=== PATIENT | male | born 1965 | race Two or more races ===

== ENCOUNTER 2021-09-17 06:05 | Day surgery (SDC) | payer OTHER ==
[~2021-09-17 06:05] MED LIST: COZAAR100 MG PO; XARELTO20 MG PO
[2021-09-17] MEDS ORDERED: ULTRAM50 MG PO (07:55)
[2021-09-17] MEDS ORDERED: MIRALAX17 GM PO (07:55)
[2021-09-17] MEDS ORDERED: TYLENOL ARTHRI650 MG PO (07:55)
[2021-09-17] MEDS ORDERED: NEURONTIN300 MG PO (07:55)
== END 2021-09-17 12:20 | disposition home or self-care (01) ==
LOC: CIR.AMB 06:05
PROVIDERS: ATTEND Surgery
DX: K40.90 Unilateral inguinal hernia, without obstruction or gangrene, not specified as recurrent (principal); K42.9 Umbilical hernia without obstruction or gangrene; D17.6 Benign lipomatous neoplasm of spermatic cord; I10 Essential (primary) hypertension; Z91.013 Allergy to seafood